=== PATIENT | male | born 1995 | race Caucasian/White ===

== ENCOUNTER 2018-10-24 04:01 | Outpatient (CLI) | payer OTHER | END 2018-10-24 04:02 | disposition critical access hospital (66) | LOC: EMS 04:01 | PROVIDERS: ATTEND Surgery | DX: Z04.1 Encounter for examination and observation following transport accident (principal) | CPT/HCPCS: A0425; A0429 ==

== ENCOUNTER 2018-10-24 04:18 | Emergency (ER) | payer OTHER ==
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
[2018-10-24 05:01] VITALS: BP 124/73
== END 2018-10-24 05:02 | disposition home or self-care (01) ==
LOC: ED 04:18
DX: Z04.1 Encounter for examination and observation following transport accident (principal); F10.129 Alcohol abuse with intoxication, unspecified
CPT/HCPCS: 99282; 99283

== ENCOUNTER 2019-06-26 13:39 | Emergency (ER) | payer OTHER ==
--- NOTE | 2019-06-26 14:18 | ED Physician Documentation ---
History of Present Illness - Stated complaint Stated Complaint: ABD PX - Chief complaint Chief Complaint: Abd Pain - Additonal information Additional information: This is a 24-year-old male otherwise healthy who presents with left testicular pain. Patient states that several days ago began having some aching in his left testicle which has worsened since then. He maybe had some slight discomfort with urination, And slight suprapubic discomfort. He denies any flank pain, nausea, vomiting. He is sexually active with his only, but they recently took a break and she may have had other partners during that time. She reportedly havd some vulvar symptoms recently that she attributed to a yeast infection. Review of Systems Constitutional: denies: Fever : reports: Testicular pain Skin: denies: Rash PD PAST MEDICAL HISTORY - Past Surgical History Past Surgical History: No - Present Medications Home Medications: Ambulatory Orders Medication Instructions Recorded Confirmed No Known Home Medications 10/24/18 10/24/18 - Allergies Allergies/Adverse Reactions: Allergies Allergy/AdvReac Type Severity Reaction Status Date / Time No Known Drug Allergies Allergy Verified 06/26/19 13:53 - Social History Does the pt smoke?: No Smoking Status: Never smoker Does the pt drink ETOH?: Yes Does the pt have substance abuse?: No - Immunizations Immunizations are current?: Yes - POLST Patient has POLST: No PD ED PE NORMAL - Vitals Vital signs reviewed: Yes - General General: Alert and oriented X 3, No acute distress - HEENT HEENT: Atraumatic - Cardiac Cardiac: RRR - Respiratory Respiratory: Clear bilaterally - Abdomen Abdomen: Non tender, Non distended - Male Male : Other (Penis is uncircumcised, normal in appearance, there is no discharge or lesions. Scrotum is normal in appearance, there is mild tenderness in the left testicle, no overlying skin changes.) - Derm Derm: Warm and dry - Extremities Extremities: No deformity - Neuro Neuro: Alert and oriented X 3 - Psych Psych: Normal mood, Normal affect Results - Vitals Vitals: Vital Signs - 24 hr 06/26/19 06/26/19 13:49 17:06 Temperature 36.5 C 36.8 C Heart Rate 78 85 Respiratory 14 18 Rate Blood Pressure 150/73 H 123/78 O2 Saturation 99 99 Oxygen O2 Source Room air - Labs Labs: Laboratory Tests 06/26/19 14:44 Urine Color YELLOW Urine Clarity CLEAR Urine pH 7.0 Ur Specific Ranger <=1.005 Urine Protein NEGATIVE Urine Glucose (UA) NEGATIVE Urine Ketones NEGATIVE Urine Occult Blood NEGATIVE Urine Nitrite NEGATIVE Urine Bilirubin NEGATIVE Urine Urobilinogen 0.2 (NORMAL) Ur Leukocyte Esterase NEGATIVE Urine RBC None Seen Urine WBC 0-3 Ur Squamous Epith Cells NONE SEEN Urine Bacteria None Seen Urine Culture Comments NOT INDICATED - Rads (name of study) Testicle US Radiology: Other (Normal echogenicity of the bilateral testicles without evidence of inflammation masses or torsion, trace bilateral scrotal hydroceles, and mild left-sided testicular microlithiasis) PD MEDICAL DECISION MAKING - ED course Complexity details: considered differential (Epididymitis, STI, UTI, torsion, orchitis) ED course: Patient has left testicular pain in the setting of a possible STD exposure given his 's symptoms and the fact that she apparently had new partners recently. His exam is benign without lesions or obvious signs of torsion. Ultrasound is unrevealing, without clear signs of epididymitis, orchitis, or torsion. His urine does show several white blood cells, no bacteria, which raises my concern for sterile pyuria. I discussed our diagnostic uncertainty with him, and that my highest concern was some early epididymitis caused by a sexual transmitted infection, after discussion with him, he agrees to empiric treatment with azithromycin and ceftriaxone. He also understands that we did not perform a complete STI screening today, and though he would like to defer on blood draws, I recommend that he follow-up with his primary care provider for further testing. He will be called with results of the chlamydia, gonorrhea, trichomonas if Positive. I reviewed that he should abstain from sex until these results come back, and that his should consider being tested as well. I also reviewed return precautions including worsening pain, discoloration of the testicles, fever, or any other concerning symptoms. Patient agreed this plan was discharged home Departure - Departure Disposition: 01 Home, Self Care Clinical Impression: Testicular pain, left Condition: Good Follow-Up: Your,PCP [Other] - Within 1 week Comments: You were seen today for pain in your left testicle. There are a few white blood cells in your urine, which suggests you could have a sexually transmitted infection. We will get the results of your testing in the next 3 days, you will be called if they are positive. We have already treated you for the 2 most common sexually tract infections - gonorrhea and chlamydia. If you develop any worsening pain, fever, or any other concerning symptoms, return to the emergency department. Please abstain from sexual intercourse until you get the results of your tests. You may take Tylenol and ibuprofen for discomfort. Discharge Date/Time: 06/26/19 17:49
[2019-06-26 14:56] LABS: BILIRUBIN,URINE NEGATIVE (NEGATIVE); GLUCOSE, URINE (UA) NEGATIVE (NEGATIVE); KETONES,URINE (UA) NEGATIVE (NEGATIVE); LEUKOCYTE ESTERASE, URINE NEGATIVE (NEGATIVE); NITRITE,URINE NEGATIVE (NEGATIVE); OCCULT BLOOD,URINE NEGATIVE (NEGATIVE); PROTEIN,URINE NEGATIVE (NEGATIVE); UROBILINOGEN,URINE 0.2 (NORMAL) E.U./dL (NORMAL)
[2019-06-26 14:58] LABS: CLARITY,URINE CLEAR (CLEAR)
[2019-06-26 15:15] LABS: BACTERIA,URINE None Seen /HPF (None Seen); RBC,URINE None Seen /HPF (0-5); SQUAMOUS EPITHELIAL CELL,UR NONE SEEN (<= Few)
[2019-06-26 17:06] VITALS: BP 123/78
--- NOTE | 2019-06-26 17:29 | Ultrasound Report ---
Reason: L testic pain Procedure Date: 06/26/2019 Accession Number: [id number] / [id number] Procedure: US - Testicle w/Doppler CPT Code: FULL RESULT: EXAM: SCROTAL ULTRASOUND EXAM DATE: 06/26/2019 04:59 PM. CLINICAL HISTORY: L testic pain. COMPARISON: None. TECHNIQUE: Real-time scanning was performed with static images obtained. Color-flow images were utilized. FINDINGS: Right: Testis: 4.2 x 2 x 2.6 cm. Normal size and echotexture. No mass, calcification, or abnormal blood flow. Epididymis: 4.5 x 0.7.2 cm. Normal size and echotexture. No mass or abnormal blood flow. Hydrocele: Trace hydrocele with internal debris. Varicocele: None. Left: Testis: 3.9 x 2.1 x 2.7 cm. Normal size and echotexture. No masses are seen. Normal Doppler flow. Punctate calcification seen in the superior aspect of the testis. Epididymis: 4.1 x 0.5 x 0.2 cm. Mildly prominent epididymal tail without increased vascularity. Remainder of the epididymis is normal. No mass or abnormal blood flow. Hydrocele: Mild hydrocele with internal debris. Varicocele: None. IMPRESSION: 1. Normal echogenicity of the bilateral testes without evidence for inflammation, masses, or torsion. 2. Mild prominence of the epididymal tail on the left without increased Doppler vascularity is of unclear etiology. 3. Trace bilateral scrotal hydroceles. 4. Mild left-sided testicular microlithiasis. [facility]
[2019-06-26] MEDS ORDERED: LIDOCAINE 1% 2 ML VIAL MC ONE (17:32)
[2019-06-26] MEDS ORDERED: cefTRIAXone 250 MG VIAL IM STA (17:32)
[2019-06-26] MEDS ORDERED: AZITHROMYCIN 250 MG TABLET PO STA (17:33)
[2019-06-27 21:04] LABS: TRICHOMONAS VAGINALIS DNA NEGATIVE (NEGATIVE)
== END 2019-06-26 17:49 | disposition home or self-care (01) ==
LOC: ED 13:39
DX: N50.812 Left testicular pain (principal)
CPT/HCPCS: 76870; 81001; 87491; 87591; 87661; 93975; 96372; 99283; 99284; A9270; 87086